=== PATIENT | female | born 1985 | race Two or more races ===

== ENCOUNTER 2024-08-25 16:17 | Emergency (ER) | payer OTHER ==
[~2024-08-25] VITALS: Ht 170.2 cm; Wt 59.0 kg
[2024-08-25 19:23] VITALS: BP 128/75; TEMP 98; O2SAT 100
== END 2024-08-25 19:23 | disposition home or self-care (01) ==
LOC: ER 16:17
DX: M25.561 Pain in right knee (principal); M25.562 Pain in left knee; M25.531 Pain in right wrist; Z60.2 Problems related to living alone; V89.2XXA Person injured in unspecified motor-vehicle accident, traffic, initial encounter; Y93.89 Activity, other specified; Y92.89 Other specified places as the place of occurrence of the external cause; Y99.8 Other external cause status
CPT/HCPCS: 73110; A4606; A4663